=== PATIENT | male | born 1995 | race Caucasian/White ===

== ENCOUNTER 2018-09-17 19:06 | Emergency (ER) | payer OTHER ==
[~2018-09-17] VITALS: Ht 182.9 cm; Wt 63.5 kg
[~2018-09-17 19:06] MED LIST: AMOX1TAB12 PO
[2018-09-17] MEDS ORDERED: TRUVADA 100 MG1 EACH (19:23)
== END 2018-09-17 21:55 | disposition home or self-care (01) ==
LOC: ER 19:06
DX: M54.5 Low back pain (principal)